=== PATIENT | female | born 1990 | race Caucasian/White ===

== ENCOUNTER → 2019-05-31 08:43 | Outpatient (BNVA) | payer SELFPAY | PROVIDERS: Family Provider Nurse Practitioner; PCP Nurse Practitioner; Visit Provider Nurse Practitioner Family | DX: S99.911A Unspecified injury of right ankle, initial encounter (principal); X58.XXXA Exposure to other specified factors, initial encounter | CPT/HCPCS: 73610 ==

== ENCOUNTER 2019-10-07 14:00 | Emergency (ER) | payer SELFPAY ==
--- NOTE | 2019-10-07 14:11 | ED_ITS ---
HPI - Extremity Injury (Lower) General: Chief Complaint: Extremity Problem,Nontraumatic Stated Complaint: r foot injury Time Seen by Provider: 10/07/19 14:11 Source: patient Mode of arrival: ambulatory Limitations: no limitations History of Present Illness: HPI Narrative: 29-year-old female comes in with pain and swelling to the right ankle. Patient was difficult to find out what it happened to her ankle. With further questioning it was found that patient had been walking in a ditch and slipped and fell yesterday. Since that time she has had some pain and discomfort to the ankle and noticed swelling this morning. Patient is weightbearing to the ankle. Patient does have some pain to it. complaint: ankle injury Review of Systems General: Reports: 10 or more systems reviewed and unremarkable except in HPI and below Musc: Reports: joint pain (right ankle pain) [facility] ED PFSH: Social History (Updated 05/30/19 @ 17:44 by Barbi Jones LPN) Smoking and tobacco status: current every day smoker Physical Exam Const: COMMON NORMALS: no acute distress and patient oriented x3 GENERAL APPEARANCE: cooperative HENMT: COMMON NORMALS: normocephalic and Normal external nose present HEAD & SCALP: normal to inspection and normocephalic NOSE: Normal external nose present MOUTH: Normal oral and palatal mucosa present THROAT: posterior oropharynx normal Eye: GENERAL EYE: appearance normal, both eyes and all related structures Neck/C-Spine: COMMON NORMALS: full ROM Chest: COMMONS NORMALS: normal inspection of the chest Resp: COMMON NORMALS: normal respiratory effort EFFORT & INSPECTION: Yes able to speak in complete sentences Cardio: COMMON NORMALS: regular rate and regular rhythm RATE: regular rate RHYTHM: regular rhythm GI: COMMON NORMALS: non-tender : COMMON NORMALS: Yes no CVA tenderness BLADDER/KIDNEY EXAM: Yes no CVA tenderness Back/Pelvis: COMMON NORMALS: no CVA tenderness and thoracic and lumbar spine normal to inspection Extremity: LEFT LOWER EXTREMITY: Yes ankle joint (Mild swelling and medial tenderness to the malleus.) Neuro: COMMON NORMALS: patient oriented x3 and moves all extremities Psych: COMMON NORMALS: mental status grossly normal and cooperative Skin: COMMON NORMALS: no rashes or lesions noted GENERAL SKIN EXAM: no rashes or lesions noted Course Vital Signs: Vital signs: Vital Signs Temperature 98.2 F 10/07/19 14:15 Pulse Rate 75 10/07/19 14:15 Respiratory Rate 16 10/07/19 14:15 Blood Pressure 103/74 10/07/19 14:15 Pulse Oximetry 100 10/07/19 14:15 MDM - Extremity Injury (Lower) MDM Narrative: Medical decision making narrative: Patient comes in today with complaints of injury to the right ankle. On exam we do note swelling to the lateral medial malleus of the ankle. Patient has good pulses. Prompt capillary refill. X-ray was negative for any fractures. Differential diagnosis includes fracture, sprain, contusion. Reviewed exam with patient recommendations for treatment for sprain. Patient reported understanding agreed to plan. Discharge Plan Discharge Patient Disposition: Home, Self-Care Clinical Impression: Ankle sprain Qualifiers: Encounter type: initial encounter Involved ligament of ankle: unspecified ligament Laterality: right Qualified Code(s): S93.401A - Sprain of unspecified ligament of right ankle, initial encounter Condition: Stable Prescriptions: New ibuprofen 800 mg tablet 800 mg PO Q8H PRN (Reason: pain) Qty: 30 RF: 0 No Action Excedrin Migraine 250-250-65 mg Tablet 1 - 2 tab PO PRN RF: 0 Discharge Orders: Discharge Order (Routine); Ordered 10/07/19 Ordered By: Asael Tan Referrals: Vikki Benjamin APN [Primary Care Provider] - Discharge Diet: Usual diet Discharge Activity: Increase activity as tolerated Patient Instructions: Ankle Sprain (ED) Activity Restrictions/Additional Instructions: Activity as tolerated. Gentle stretching and range of motion exercises. Drink plenty of water with medication. Use acetaminophen for further pain control. Use ice or heat to the area for further pain control. Follow-up with primary care for persistent symptoms. Return to the ER for new concerns. Coding Level of Care Code ED Ict Help Desk Officer for Annie Castro Exam Comprehensive
[2019-10-07 14:12] VITALS: BMI 24.3
[2019-10-07 14:15] VITALS: BP 103/74; PULSE 75; RESP 16; TEMP 36.8; O2SAT 100
--- NOTE | 2019-10-07 14:24 | XR_ITS ---
WS: [id number] XR ankle RT min 3V* [id number] REASON FOR EXAM: injury FINDINGS: The ankle mortise is normal. The tibia, fibula, talus show no abnormalities. The posterior shelf the tibia is normal. On previous exam of May 30, 2019 a small cortical fractu re was seen within the tibia along the distal diaphysis this is healed. XR/XR ankle RT min 3V* [id number] IMPRESSION: Negative right ankle There is soft tissue swelling over the medial and lateral malleolus.
[2019-10-07 15:25] VITALS: BP 105/72; PULSE 70; RESP 16; TEMP 36.8; O2SAT 96
--- NOTE | 2019-10-08 13:35 | PC.NURSE ---
COLLECTED SUPPLIES SUCH CATHERINE WRAP TO PLACE ON PT LEFT ANKLE. WHILE FINISHING PAPER WORK, PT ASKED IF SHE COULD GO OUTSIDE, ENCOURAGED HER TO STAY SO I COULD PLACE WRAP ON ANKLE. BUT SHE INSISTED ON GOING OUTSIDE. ASKED HER AGAIN TO WAIT FOR THE CATHERINE WRAP TO BE PLACED ON ANKLE. THEN SHE WALKED OUT.
== END 2019-10-07 15:28 | disposition home or self-care (01) ==
PROVIDERS: Emergency Provider Nurse Practitioner Family; Family Provider Nurse Practitioner; PCP Nurse Practitioner
DX: S93.401A Sprain of unspecified ligament of right ankle, initial encounter (principal); W01.0XXA Fall on same level from slipping, tripping and stumbling without subsequent striking against object, initial encounter; F17.210 Nicotine dependence, cigarettes, uncomplicated
CPT/HCPCS: 12345; 73610; 99282

== ENCOUNTER 2020-03-17 03:02 | Emergency (ER) | payer SELFPAY ==
[2020-03-17 03:04] VITALS: BP 113/72; PULSE 84; RESP 19; TEMP 36.7; O2SAT 91; BMI 23.2
--- NOTE | 2020-03-17 03:15 | W.ED.ABDPA2 ---
Documented by User: Mary Jane Busch 03/17/20 18:41 HPI - Abdominal Pain General: Chief Complaint: Abdominal Pain Stated Complaint: Pt states pain Time Seen by Provider: 03/17/20 03:06 Source: patient Mode of arrival: ambulatory Limitations: no limitations History of Present Illness: HPI narrative: Sindhu is a nice 29-year-old female who comes in complaining of midline lower abdominal pain that awoke her from sleep. Patient states that she is as she is had 2+ home test. She has irregular periods and is uncertain as to when her last normal menstrual period was. Patient states she is have 3 other healthy children. She currently denies any vaginal discharge or bleeding. She denies any urinary urgency, frequency or dysuria. Patient denies any flank or back pain. Is unaware of anything that makes her symptoms better or worse. She states this feels like uterine cramping. Associated Symptoms: Denies chills, coffee ground emesis, constipation, GI cramping, diarrhea, dysuria, fever(s), heartburn, hematochezia, hematuria, hematemesis, melena, nausea, syncope and vomiting Related Data: Date of Last Menstrual Period: 09/30/19 Review of Systems Const: Denies: fever(s), chills, body aches, fatigue, malaise or diaphoresis Eyes: Denies: change in vision, blurry vision, photophobia, eye discomfort, eye discharge, eye redness or yellow eyes ENMT: Denies: throat pain, odynophagia, hoarseness, swelling of lips/tongue, ear or mastoid pain, ear discharge, change in hearing or nasal discharge Card: Denies: chest pain, palpitations, irregular heart rhythm, edema, lightheadedness, syncope, pre-syncope, dyspnea on exertion or orthopnea Resp: Denies: dyspnea, productive cough, non-productive cough, wheezing, hemoptysis or chest congestion GI: Reports: abdominal pain; Denies: nausea, vomiting, hematemesis, coffee ground emesis, heartburn, diarrhea, constipation, GI cramping, hematochezia or melena : Denies: flank pain, dysuria, urinary frequency, urinary urgency or hematuria Musc: Denies: neck pain, back pain, extremity pain, extremity swelling, joint pain, joint swelling, joint redness, joint warmth or joint stiffness Skin/Breast: Denies: rash, pruritus, erythema, skin pain or skin tenderness Neuro: Denies: headache(s), numbness in extremities, weakness in extremities, sensory changes, lack of coordination, difficulty walking, dizziness, vertigo, confusion, Slurred speech present or seizure-like activity Guillermo/Lymph: Denies: easy bruising, easy bleeding, petechiae, purpura or enlarged lymph nodes All/Imm: Denies: urticaria, throat swelling, tongue swelling, facial swelling or acute wheezing PFSH ED PFSH: Medical History Asthma Panic disorder Social History Smoking and tobacco status: current every day smoker Female Reproductive History: Date of last menstrual period: 09/30/19 Physical Exam Const: COMMON NORMALS: no acute distress, patient oriented x3, no limitations and alert GENERAL APPEARANCE: cooperative HENMT: COMMON NORMALS: normocephalic, atraumatic, external ears normal, EAC's normal and Normal external nose present HEAD & SCALP: normal to inspection, normocephalic and atraumatic FACE & SINUS: normal facial exam and face symmetric NOSE: Normal external nose present and Normal nares present EXTERNAL EAR: Yes external ears normal EXTERNAL AUDITORY CANAL: EAC's normal MOUTH: Normal oral and palatal mucosa present, lip normal and tongue normal Eye: COMMON NORMALS: Equal, round and reactive pupils present and conjunctivae normal GENERAL EYE: appearance normal, both eyes and all related structures ALIGNMENT: Yes alignment normal PERIORBITAL: periorbital findings normal EYELID: eyelids normal CONJUNCTIVA: Yes conjunctivae normal SCLERA: sclerae normal PUPIL: Yes Equal, round and reactive pupils present Neck/C-Spine: COMMON NORMALS: full ROM, no lymphadenopathy, supple, no meningeal signs and no JVD GENERAL: Yes normal visual inspection and Yes trachea midline Chest: COMMONS NORMALS: normal inspection of the chest and normal palpation of entire chest wall Resp: COMMON NORMALS: normal respiratory effort, No retractions, No use of accessory muscles and clear to auscultation bilaterally EFFORT & INSPECTION: Yes able to speak in complete sentences and Yes symmetric chest movement AUSCULTATION: clear to auscultation bilaterally, no crackles, no rales, no rhonchi and no wheezes Cardio: COMMON NORMALS: no JVD, regular rhythm, S1 normal heart sound present and S2 normal heart sound present RATE: tachycardic RHYTHM: regular rhythm HEART SOUNDS: S1 normal heart sound present, S2 normal heart sound present, no click, no gallops, no murmurs and no rubs GI: COMMON NORMALS: Soft to palpation and No hepatosplenomegaly present PALPATION: Yes Soft to palpation, No Tenderness to palpation present (GI), No Guarding due to palpation present (GI), No Rigid due to palpation, Yes No hepatosplenomegaly present, No Hernia present, No Palpable mass present and No Pulsatile mass present : COMMON NORMALS: Yes no CVA tenderness BLADDER/KIDNEY EXAM: Yes no CVA tenderness EXTERNAL FEMALE EXAM: No Hernia present Back/Pelvis: COMMON NORMALS: no CVA tenderness, thoracic and lumbar spine normal to inspection, no thoracic nor lumbar tenderness and thoraco-lumbar ROM normal Extremity: COMMON NORMALS: normal to inspection, full ROM, capillary refill normal, no joint enlargement, no clubbing, cyanosis or edema and no calf tenderness Neuro: COMMON NORMALS: patient oriented x3, CN's II-XII intact bilaterally, moves all extremities, no focal motor deficits and no sensory deficits noted SENSORIUM/ORIENTATION: Yes alert MENINGEAL SIGNS: Yes no meningeal signs SPEECH: speech normal Psych: COMMON NORMALS: mental status grossly normal, Normal thought process present, cooperative, normal affect, speech normal and activity/motor behavior normal SPEECH: Yes normal speech THOUGHT PROCESS: Normal thought process present Skin: COMMON NORMALS: no rashes or lesions noted, turgor normal, no jaundice, no petechiae and no mottling GENERAL SKIN EXAM: no rashes or lesions noted and turgor normal Course Vital Signs: Vital signs: Vital Signs Temperature 98.1 F 03/17/20 03:04 Pulse Rate 97 03/17/20 08:00 Respiratory Rate 17 03/17/20 08:00 Blood Pressure 120/73 03/17/20 08:00 Pulse Oximetry 98 03/17/20 08:00 MDM - Abdominal Pain MDM Narrative: Medical decision making narrative: 0600 - Case turned over to Dr. David at change of shift. Lab Data: Labs: Lab Results 03/17/20 03/17/20 03/17/20 Range/Units 03:41 03:41 03:41 WBC 11.0 H (4.0-10.0) 10^3/ uL RBC 4.91 (4.1-5.3) 10^6/u L Hgb 10.0 L (11.5-15.3) g/dL Hct 34.3 L (37.0-47.0) % MCV 69.9 L (81-99) fL MCH 20.4 L (28.0-34.0) pg MCHC 29.2 L (30.0-36.0) g/dL RDW 15.5 H (12.1-15.1) % Plt Count 293 (130-400) 10^3/c mm MPV 10.5 H (7.4-10.4) fL Neut % (Auto) 73.6 % Lymph % (Auto) 19.8 % [place] % (Auto) 5.4 % Eos % (Auto) 0.5 % Baso % (Auto) 0.4 % Neut # (Auto) 8.12 H (1.8-7.7) 10^3/u L Lymph # (Auto) 2.2 (0.8-4.8) 10^3/u L [place] # (Auto) 0.6 (0.2-0.9) 10^3/u L Eos # (Auto) 0.1 (0.0-0.8) 10^3/u L Baso # (Auto) 0.0 (0.0-0.1) 10^3/u L Nucleated RBC % (a uto) 0 % Nucleated RBCs # 0.0 /100WBC Sodium 135 L (136-145) mmol/L Potassium 3.3 L (3.5-5.1) mmol/L Chloride 99 (98-107) mmol/L Carbon Dioxide 26 (22-29) mmol/L Anion Gap 13.3 (5-19) BUN 10 (6-20) mg/dL Creatinine 0.5 (0.5-0.9) mg/dL GFR Calculation 145.9 H (90-130) mL/min Glucose 121 H (65-115) mg/dL Calculated Osmolal ity 280 L (285-295) mOsm/k g Calcium 9.5 (8.5-10.5) mg/dL Total Bilirubin 0.5 (0.15-1.2) mg/dL AST 24 (0-32) U/L ALT 16 (0-33) U/L Alkaline Phosphata se 76 (35-105) IU/L Total Protein 7.4 (6.6-8.7) g/dL Albumin 4.5 (3.5-5.2) g/dL Globulin 2.9 (1.3-4.6) g/dL HCG, Qual (Negative) Ser , Jamey i-Qnt 2.17 mIU/mL Urine Color (Yellow) Urine Appearance (CLEAR) Urine pH (5-7) Ur Specific Gravit y (1.005-1.030) Urine Protein (Negative) Urine Glucose (UA) (Normal) Urine Ketones (Negative) Urine Blood (Negative) Urine Nitrate (Negative) Urine Bilirubin (Negative) Urine Urobilinogen (Negative) mg/dL Ur Leukocyte Anali ase (Negative) Urine RBC (0-2) /hpf Urine WBC (0-5) /hpf Ur Squamous Epith Cells (0-5) /hpf Amorphous Sediment Urine Bacteria (NONE) /hpf Urine Mucus /hpf Blood Type O Positive Rho(D) Type Positive 03/17/20 03/17/20 Range/Units 03:41 06:01 WBC (4.0-10.0) 10^3/ uL RBC (4.1-5.3) 10^6/u L Hgb (11.5-15.3) g/dL Hct (37.0-47.0) % MCV (81-99) fL MCH (28.0-34.0) pg MCHC (30.0-36.0) g/dL RDW (12.1-15.1) % Plt Count (130-400) 10^3/c mm MPV (7.4-10.4) fL Neut % (Auto) % Lymph % (Auto) % [place] % (Auto) % Eos % (Auto) % Baso % (Auto) % Neut # (Auto) (1.8-7.7) 10^3/u L Lymph # (Auto) (0.8-4.8) 10^3/u L [place] # (Auto) (0.2-0.9) 10^3/u L Eos # (Auto) (0.0-0.8) 10^3/u L Baso # (Auto) (0.0-0.1) 10^3/u L Nucleated RBC % (a uto) % Nucleated RBCs # /100WBC Sodium (136-145) mmol/L Potassium (3.5-5.1) mmol/L Chloride (98-107) mmol/L Carbon Dioxide (22-29) mmol/L Anion Gap (5-19) BUN (6-20) mg/dL Creatinine (0.5-0.9) mg/dL GFR Calculation (90-130) mL/min Glucose (65-115) mg/dL Calculated Osmolal ity (285-295) mOsm/k g Calcium (8.5-10.5) mg/dL Total Bilirubin (0.15-1.2) mg/dL AST (0-32) U/L ALT (0-33) U/L Alkaline Phosphata se (35-105) IU/L Total Protein (6.6-8.7) g/dL Albumin (3.5-5.2) g/dL Globulin (1.3-4.6) g/dL HCG, Qual Negative (Negative) Ser , Jamey i-Qnt mIU/mL Urine Color Yellow (Yellow) Urine Appearance Clear (CLEAR) Urine pH 5.0 (5-7) Ur Specific Gravit y 1.025 (1.005-1.030) Urine Protein Neg (Negative) Urine Glucose (UA) Norm (Normal) Urine Ketones 1+ H (Negative) Urine Blood Neg (Negative) Urine Nitrate Negative (Negative) Urine Bilirubin Neg (Negative) Urine Urobilinogen Norm (Negative) mg/dL Ur Leukocyte Anali ase Negative (Negative) Urine RBC None (0-2) /hpf Urine WBC 0-4 H (0-5) /hpf Ur Squamous Epith Cells 15-25 H (0-5) /hpf Amorphous Sediment Not Reportable Urine Bacteria 1+ H (NONE) /hpf Urine Mucus 3+ /hpf Blood Type Rho(D) Type Discharge Plan Discharge Patient Disposition: Home Clinical Impression: Acute PID (pelvic inflammatory disease), Hemorrhagic cyst of right ovary Condition: Stable Prescriptions: New doxycycline hyclate 100 mg capsule 100 mg PO BID 14 Days Qty: 28 RF: 0 hydrocodone-acetaminophen 5-325 mg tablet 1 tab PO Q6H PRN (Reason: pain) Qty: 20 RF: 0 No Action Excedrin Migraine 250-250-65 mg Tablet 1 - 2 tab PO PRN RF: 0 ibuprofen 800 mg tablet 800 mg PO Q8H PRN (Reason: pain) Qty: 30 RF: 0 Discharge Orders: Discharge Order (Routine); Ordered 03/17/20 Ordered By: Fermín David Referrals: Vikki Benjamin COMPUTERIZED TABLE CUTTER [Primary Care Provider] - Discharge Diet: Usual diet Discharge Activity: Increase activity as tolerated Activity Restrictions/Additional Instructions: Case management will call to set up a follow-up with ARTILL[facility] OFFICER on your ultrasound. There was some thickening of the endometrium and the ovarian cyst that need follow-up. If you have worsening or change symptoms recheck in the emergency room. Sign Out Sign Out Data: Patient Sign Out occurred on 03/17/20 at 06:09. Patient's care was discussed, and care was transferred from to Fermín David DO. Coding Level of Care Code ED Filament Tester for Chg Fwd Exam Comprehensive Documented by User: Fermín David DO 03/21/20 12:40 HPI - Abdominal Pain General: Chief Complaint: Abdominal Pain Stated Complaint: Pt states pain Time Seen by Provider: 03/17/20 03:06 [facility] ED PFSH: Medical History Asthma Panic disorder Social History Smoking and tobacco status: current every day smoker Course Vital Signs: Vital signs: Vital Signs Temperature 98.1 F 03/17/20 03:04 Pulse Rate 97 03/17/20 08:00 Respiratory Rate 17 03/17/20 08:00 Blood Pressure 120/73 03/17/20 08:00 Pulse Oximetry 98 03/17/20 08:00 MDM - Abdominal Pain MDM Narrative: Medical decision making narrative: Treat for PID patient given Zithromax 1 g p.o. to 50 IM ceftriaxone and started on doxycycline for 14 days pending results. Discussed with the patient follow-up with her primary care doctor. Lab Data: Labs: Lab Results 03/17/20 03/17/20 03/17/20 Range/Units 03:41 03:41 03:41 WBC 11.0 H (4.0-10.0) 10^3/ uL RBC 4.91 (4.1-5.3) 10^6/u L Hgb 10.0 L (11.5-15.3) g/dL Hct 34.3 L (37.0-47.0) % MCV 69.9 L (81-99) fL MCH 20.4 L (28.0-34.0) pg MCHC 29.2 L (30.0-36.0) g/dL RDW 15.5 H (12.1-15.1) % Plt Count 293 (130-400) 10^3/c mm MPV 10.5 H (7.4-10.4) fL Neut % (Auto) 73.6 % Lymph % (Auto) 19.8 % [place] % (Auto) 5.4 % Eos % (Auto) 0.5 % Baso % (Auto) 0.4 % Neut # (Auto) 8.12 H (1.8-7.7) 10^3/u L Lymph # (Auto) 2.2 (0.8-4.8) 10^3/u L [place] # (Auto) 0.6 (0.2-0.9) 10^3/u L Eos # (Auto) 0.1 (0.0-0.8) 10^3/u L Baso # (Auto) 0.0 (0.0-0.1) 10^3/u L Nucleated RBC % (a uto) 0 % Nucleated RBCs # 0.0 /100WBC Sodium 135 L (136-145) mmol/L Potassium 3.3 L (3.5-5.1) mmol/L Chloride 99 (98-107) mmol/L Carbon Dioxide 26 (22-29) mmol/L Anion Gap 13.3 (5-19) BUN 10 (6-20) mg/dL Creatinine 0.5 (0.5-0.9) mg/dL GFR Calculation 145.9 H (90-130) mL/min Glucose 121 H (65-115) mg/dL Calculated Osmolal ity 280 L (285-295) mOsm/k g Calcium 9.5 (8.5-10.5) mg/dL Total Bilirubin 0.5 (0.15-1.2) mg/dL AST 24 (0-32) U/L ALT 16 (0-33) U/L Alkaline Phosphata se 76 (35-105) IU/L Total Protein 7.4 (6.6-8.7) g/dL Albumin 4.5 (3.5-5.2) g/dL Globulin 2.9 (1.3-4.6) g/dL HCG, Qual (Negative) Ser , Jamey i-Qnt 2.17 mIU/mL Urine Color (Yellow) Urine Appearance (CLEAR) Urine pH (5-7) Ur Specific Gravit y (1.005-1.030) Urine Protein (Negative) Urine Glucose (UA) (Normal) Urine Ketones (Negative) Urine Blood (Negative) Urine Nitrate (Negative) Urine Bilirubin (Negative) Urine Urobilinogen (Negative) mg/dL Ur Leukocyte Anali ase (Negative) Urine RBC (0-2) /hpf Urine WBC (0-5) /hpf Ur Squamous Epith Cells (0-5) /hpf Amorphous Sediment Urine Bacteria (NONE) /hpf Urine Mucus /hpf Blood Type O Positive Rho(D) Type Positive 03/17/20 03/17/20 Range/Units 03:41 06:01 WBC (4.0-10.0) 10^3/ uL RBC (4.1-5.3) 10^6/u L Hgb (11.5-15.3) g/dL Hct (37.0-47.0) % MCV (81-99) fL MCH (28.0-34.0) pg MCHC (30.0-36.0) g/dL RDW (12.1-15.1) % Plt Count (130-400) 10^3/c mm MPV (7.4-10.4) fL Neut % (Auto) % Lymph % (Auto) % [place] % (Auto) % Eos % (Auto) % Baso % (Auto) % Neut # (Auto) (1.8-7.7) 10^3/u L Lymph # (Auto) (0.8-4.8) 10^3/u L [place] # (Auto) (0.2-0.9) 10^3/u L Eos # (Auto) (0.0-0.8) 10^3/u L Baso # (Auto) (0.0-0.1) 10^3/u L Nucleated RBC % (a uto) % Nucleated RBCs # /100WBC Sodium (136-145) mmol/L Potassium (3.5-5.1) mmol/L Chloride (98-107) mmol/L Carbon Dioxide (22-29) mmol/L Anion Gap (5-19) BUN (6-20) mg/dL Creatinine (0.5-0.9) mg/dL GFR Calculation (90-130) mL/min Glucose (65-115) mg/dL Calculated Osmolal ity (285-295) mOsm/k g Calcium (8.5-10.5) mg/dL Total Bilirubin (0.15-1.2) mg/dL AST (0-32) U/L ALT (0-33) U/L Alkaline Phosphata se (35-105) IU/L Total Protein (6.6-8.7) g/dL Albumin (3.5-5.2) g/dL Globulin (1.3-4.6) g/dL HCG, Qual Negative (Negative) Ser , Jamey i-Qnt mIU/mL Urine Color Yellow (Yellow) Urine Appearance Clear (CLEAR) Urine pH 5.0 (5-7) Ur Specific Gravit y 1.025 (1.005-1.030) Urine Protein Neg (Negative) Urine Glucose (UA) Norm (Normal) Urine Ketones 1+ H (Negative) Urine Blood Neg (Negative) Urine Nitrate Negative (Negative) Urine Bilirubin Neg (Negative) Urine Urobilinogen Norm (Negative) mg/dL Ur Leukocyte Anali ase Negative (Negative) Urine RBC None (0-2) /hpf Urine WBC 0-4 H (0-5) /hpf Ur Squamous Epith Cells 15-25 H (0-5) /hpf Amorphous Sediment Not Reportable Urine Bacteria 1+ H (NONE) /hpf Urine Mucus 3+ /hpf Blood Type Rho(D) Type Discharge Plan Discharge Patient Disposition: Home Clinical Impression: Acute PID (pelvic inflammatory disease), Hemorrhagic cyst of right ovary Condition: Stable Prescriptions: New doxycycline hyclate 100 mg capsule 100 mg PO BID 14 Days Qty: 28 RF: 0 hydrocodone-acetaminophen 5-325 mg tablet 1 tab PO Q6H PRN (Reason: pain) Qty: 20 RF: 0 No Action Excedrin Migraine 250-250-65 mg Tablet 1 - 2 tab PO PRN RF: 0 ibuprofen 800 mg tablet 800 mg PO Q8H PRN (Reason: pain) Qty: 30 RF: 0 Discharge Orders: Discharge Order (Routine); Ordered 03/17/20 Ordered By: Fermín David Referrals: Vikki Benjamin APN [Primary Care Provider] - Discharge Diet: Usual diet Discharge Activity: Increase activity as tolerated Activity Restrictions/Additional Instructions: Case management will call to set up a follow-up with ARTILLERY OFFICER on your ultrasound. There was some thickening of the endometrium and the ovarian cyst that need follow-up. If you have worsening or change symptoms recheck in the emergency room. Sign Out Sign Out Data: Patient Sign Out occurred on 03/17/20 at 06:09. Patient's care was discussed, and care was transferred from to Fermín David DO. Coding Level of Care Code ED Filament Tester for Annie Fwd Exam Comprehensive
[2020-03-17 03:42] VITALS: RESP 17
[2020-03-17] MEDS: metoclopramide 5 mg/mL SDV 2 mL 10 MG IV (03:42)
[2020-03-17] MEDS: sodium chloride 0.9% 1,000 ML 999 ML IV (03:42)
[2020-03-17] MEDS: morphine 4 mg/mL SDV 1 mL IVP ×2 (03:42→07:53)
[2020-03-17 03:50] LABS: Basophils % 0.4 %; Eosinophils # 0.1 10^3/uL (0.0-0.8); Eosinophils % 0.5 %; Hematocrit 34.3 % (37.0-47.0); Lymphocytes # 2.2 10^3/uL (0.8-4.8); Lymphocytes % 19.8 %; Mean Corpuscular HGB Conc 29.2 g/dL (30.0-36.0); Mean Corpuscular Hemoglobin 20.4 pg (28.0-34.0); Mean Corpuscular Volume 69.9 fL (81-99); Mean Platelet Volume 10.5 fL (7.4-10.4); Monocytes # 0.6 10^3/uL (0.2-0.9); Monocytes % 5.4 %; Neutrophils # 8.12 10^3/uL (1.8-7.7); Neutrophils % 73.6 %; Nucleated Red Blood Cells % 0 %; Platelet Count 293 10^3/cmm (130-400); Red Blood Count 4.91 10^6/uL (4.1-5.3); Red Cell Distribution Width 15.5 % (12.1-15.1)
[2020-03-17 04:12] LABS: HCG Quantitative 2.17 mIU/mL; HCG, Serum Qual Negative (Negative)
[2020-03-17 04:28] LABS: Alanine Aminotransferase 16 U/L (0-33); Albumin Level 4.5 g/dL (3.5-5.2); Alkaline Phosphatase 76 IU/L (35-105); Anion Gap 13.3 (5-19); Aspartate Amino Transferase 24 U/L (0-32); Blood Urea Nitrogen 10 mg/dL (6-20); Calcium 9.5 mg/dL (8.5-10.5); Carbon Dioxide 26 mmol/L (22-29); Chloride 99 mmol/L (98-107); Globulin 2.9 g/dL (1.3-4.6); Glomerular Filtration Rate 145.9 mL/min (90-130); Glucose 121 mg/dL (65-115); Osmolality Calculated 280 mOsm/kg (285-295); Potassium 3.3 mmol/L (3.5-5.1); Sodium 135 mmol/L (136-145); Total Bilirubin 0.5 mg/dL (0.15-1.2); Total Protein 7.4 g/dL (6.6-8.7)
--- NOTE | 2020-03-17 04:33 | USR_ITS ---
PROCEDURE INFORMATION: Exam: US Nonobstetric Pelvis; Complete Exam date and time: 03/17/2020 5:58 AM Age: 29 years old Clinical indication: Pelvic pain; Prior surgery; Surgery date: 6+ months; Surgery type: Tubes tied. ; Patient HX: PT had dx of hpv with CA changes but did not follow up on dx with caregiver. PT had 3+ home pg tests. TECHNIQUE: Imaging protocol: Transabdominal pelvic nonobstetric ultrasound. Complete exam. Real time ultrasound with image documentation. COMPARISON: CR Pelvis AP 1 or 2 views* [id number] 09/10/2018 3:12 AM FINDINGS: Uterus/cervix: Abnormally thickened 20 mm endometrium in the uterine fundus. Neoplasm versus endometrial hyperplasia. 1.4 cm intramural fibroid in the posterior uterus which is partially submucosal. Right adnexa: Enlarged 4.0 x 3.2 x 4.0 cm right ovary with estimated volume 26 cc. 1.5 cm simple right ovarian cyst with multiple smaller cyst. Normal perfusion to the right ovary. Left adnexa: 3.4 x 1.6 x 3.2 cm left ovary with estimated volume 9.3 cc. Normal perfusion to the left ovary. Intraperitoneal space: Free fluid in the posterior cul-de-sac with possible debris. Free fluid and debris surrounding the right ovary with the patient in pain suggesting possible ruptured hemorrhagic cyst versus pelvic inflammatory disease versus other lesion. Urinary bladder: Normal. US/US pelvic with transvaginal IMPRESSION: 1. Abnormally thickened 20 mm endometrium in the uterine fundus. Neoplasm versus endometrial hyperplasia. 2. 1.4 cm intramural fibroid in the posterior uterus which is partially submucosal. 3. Enlarged 4.0 x 3.2 x 4.0 cm right ovary with estimated volume 26 cc. 4. Free fluid in the posterior cul-de-sac with possible debris. 5. Free fluid and debris surrounding the right ovary with the patient in pain suggesting possible ruptured hemorrhagic cyst versus pelvic inflammatory disease versus other lesion. Six. Normal ovarian perfusion with no obvious torsion. Impression.
[2020-03-17 06:07] VITALS: BP 117/70; PULSE 80; RESP 17; O2SAT 96
[2020-03-17 06:24] LABS: Specific Gravity, Urine 1.025 (1.005-1.030); Urine Appearance Clear (CLEAR); Urine Color Yellow (Yellow)
[2020-03-17 06:25] LABS: Bilirubin Urine Neg (Negative); Blood Urine Neg (Negative); Glucose Urine UA Norm (Normal); Ketones Urine 1+ (Negative); Leukocyte Esterase Urine Negative (Negative); Nitrate Urine Negative (Negative); Protein Urine Neg (Negative); Urobilinogen Urine Norm (Negative)
[2020-03-17 06:29] LABS: Squamous Epithelial Cell Urine 15-25 /hpf (0-5); WBC Urine 0-4 /hpf (0-5)
[2020-03-17 06:30] LABS: Add Urine Culture? No; Bacteria Urine 1+ /hpf; Mucus Urine 3+ /hpf
[2020-03-17] MEDS: azithromycin 250 mg Tablet 1000 MG PO (06:59)
[2020-03-17 07:02] VITALS: BP 115/73; PULSE 101; O2SAT 99
[2020-03-17] MEDS: cefTRIAXone 250 mg SDV IM (07:32)
[2020-03-17] MEDS: lidocaine 1% INJ 20 mL INJECTION (07:33)
[2020-03-17 07:53] VITALS: RESP 18; O2SAT 98
[2020-03-17 08:00] VITALS: BP 120/73; PULSE 97; RESP 17; O2SAT 98
--- NOTE | 2020-03-17 08:43 | DCPLANNER ---
manager of development was asked to schedule a follow up appointment for patient with [facility]. manager of development called the [facility], spoke with Maximilian, gave clinic patients information. manager of development was told that patients information would be printed and reviewed. Clinic will call patient with appointment information.
--- NOTE | 2020-03-22 07:44 | DCPLANNER ---
Patient has a follow up appointment scheduled for Wednesday, April 08, 2020 at 10:[address] Chamberlain. Clinic will call patient with appointment information.
--- NOTE | 2020-04-15 15:13 | DCPLANNER ---
Patient had a follow up appointment scheduled for 04.08.20 with [facility] - patient did not attend appointment.
== END 2020-03-17 07:51 | disposition home or self-care (01) ==
PROVIDERS: Emergency Medicine; Emergency Provider Family Medicine; Family Provider Nurse Practitioner; PCP Nurse Practitioner
DX: N73.0 Acute parametritis and pelvic cellulitis (principal); N83.201 Unspecified ovarian cyst, right side; F17.210 Nicotine dependence, cigarettes, uncomplicated
CPT/HCPCS: 12345; 76830; 76856; 80053; 81001; 84702; 84703; 85025; 86900; 87210; 87491; 87591; 96361; 96372; 96374; 96375; 96376; 99283; 99284; E0352; J0696; J2270; J2765; J7030; Q0144

== ENCOUNTER → 2020-05-24 13:59 | Outpatient (BNVA) | payer SELFPAY | PROVIDERS: Family Provider Nurse Practitioner; PCP Nurse Practitioner; Visit Provider Obstetrics & Gynecology | DX: D25.1 Intramural leiomyoma of uterus (principal); N83.292 Other ovarian cyst, left side; R10.2 Pelvic and perineal pain | CPT/HCPCS: 76830 ==

== ENCOUNTER → 2022-10-15 15:00 | Outpatient (BNVA) | payer SELFPAY | PROVIDERS: Family Provider Nurse Practitioner; PCP Nurse Practitioner; Visit Provider Obstetrics & Gynecology | DX: Z12.4 Encounter for screening for malignant neoplasm of cervix (principal) | CPT/HCPCS: 87624 ==

== ENCOUNTER 2022-11-20 12:41 | Emergency (ER) | payer SELFPAY ==
[2022-11-20 12:45] VITALS: BP 115/73; PULSE 65; RESP 16; TEMP 36.6; O2SAT 97; BMI 23.4
--- NOTE | 2022-11-20 12:55 | ED_ITS ---
HPI - Extremity Problem General: Chief complaint: Extremity Injury, Lower Stated complaint: LT leg swollen from knee down Time Seen by Provider: 11/20/22 12:54 History of Present Illness: Ms. Ayala is a 32-year-old lady without significant past medical history presenting to the emergency department for lower extremity swelling. She noted onset of symptoms about 3 weeks ago. She thinks she may have been bit on the top of her foot by a snake. She did not necessarily notice anything right away but subsequently developed aching in her ankle. Since that time she has had progressive onset of swelling associated with mild to moderate pain. Pain is improved with ambulation. She has not tried over the counter medications. Denies signs of systemic illness. No other specific changes in health, exacerbating, or alleviating factors identified. Onset (ago): week(s) Pain Consistency: constant Location: left and lower extremity Quality: aching Radiation: proximal Exacerbating factors: palpation Associated symptoms: Reports arthralgias Review of Systems General: Reports: 10 or more systems reviewed and unremarkable except in HPI and below PFSH ED PFSH: Medical History Asthma Panic disorder Surgical History H/O tubal ligation 10/09/2015- tubal ligation. Performed by Dr. Dustin Juarez at [facility] in [place], [place]. S/P tonsillectomy and adenoidectomy Family History Grandmother Breast cancer maternal, age onset unknown Diabetes maternal Colon cancer maternal great great Family/Other Thyroid condition maternal aunt Father Heart disease Denies family history of Ovarian cancer Clotting disorder Hyperlipidemia Anesthesia complication Bleeding disorder Hypertension Uterine cancer Stroke Physical Exam Const: COMMON NORMALS: alert GENERAL APPEARANCE: cooperative and well developed HENMT: COMMON NORMALS: normocephalic and atraumatic HEAD & SCALP: normocephalic and atraumatic Eye: COMMON NORMALS: conjunctivae normal CONJUNCTIVA: Yes conjunctivae normal SCLERA: sclerae normal Neck/C-Spine: COMMON NORMALS: supple GENERAL: Yes trachea midline Resp: COMMON NORMALS: clear to auscultation bilaterally EFFORT & INSPECTION: Yes able to speak in complete sentences AUSCULTATION: clear to auscultation bilaterally Cardio: COMMON NORMALS: regular rate and regular rhythm RATE: regular rate RHYTHM: regular rhythm Extremity: NARRATIVE EXTREMITY EXAM: Left lower extremity edema from the distal thigh down. Appears to be progressive and circumferential with firmness and minimal warmth. No clear overlying cellulitis. CMS distally intact. GENERAL: Yes normal exam except as noted and No edema Neuro: COMMON NORMALS: moves all extremities SENSORIUM/ORIENTATION: Yes alert and No Orientation impaired Psych: COMMON NORMALS: mental status grossly normal and Normal thought process present THOUGHT PROCESS: Normal thought process present Course Vital Signs: Vital signs: Vital Signs Temperature 97.8 F 11/20/22 12:45 Pulse Rate 65 11/20/22 12:45 Respiratory Rate 16 11/20/22 12:45 Blood Pressure 115/73 11/20/22 12:45 Pulse Oximetry 97 11/20/22 12:45 Oxygen Delivery Me thod Room Air 11/20/22 12:45 MDM - Extremity (Nontraumatic) Medical Decision Making 32-year-old lady presenting with left lower extremity swelling with reported remote history of possible snake bite. Extremity is quite edematous from just proximal to the knee down. CMS intact. No increased pain with passive movements. Generalized firmness to palpation however no specific compartment firmness identified. Doppler venous study negative for DVT. Normal KENIA. X-rays are negative for fracture or foreign body. I ordered labs which the patient adamantly repeatedly declined. I explained to the patient reason for obtaining labs including help differentiating cause of symptoms as well as evaluating for complications relating to both possible envenomation and degree of swelling. I explained risks of not obtaining labs including possibility of permanent pain/debility or loss of extremity or worse. I discussed with poison control. Certainly swelling can persist and this may be sequelae of envenomation however there is no indication for antivenom. Tdap ordered The patient is oriented to person, place, and time, has the capacity to make decisions regarding the medical care offered. The patient speaks coherently and exhibits no evidence of having an altered level of consciousness or alcohol or drug intoxication to a point that would impair judgment. Patient left AGAINST MEDICAL ADVICE. Discharge instructions were provided and the patient understands that she may return to the emergency department for any reason at any time. Medical Records I reviewed the patient's medical records. Lab Data I reviewed the patient's lab results. Radiology Impressions Foot X-Ray 11/20/22 12:59 IMPRESSION: No acute findings. Knee X-Ray 11/20/22 12:59 IMPRESSION: No acute findings. Tibia/Fibula X-Ray 11/20/22 12:59 IMPRESSION: No acute findings. Discharge Plan Discharge Patient Disposition: Left Against Medical Advice Clinical Impression: Pain and swelling of left lower extremity, Bite of left lower leg Condition: Stable Prescriptions: New cephalexin 500 mg capsule 500 mg PO Q6H 7 Days Qty: 28 0RF No Action Excedrin Migraine 250-250-65 mg Tablet 1 - 2 tab PO Q6H PRN (Reason: Pain) Iron (ferrous sulfate) 325 mg (65 mg iron) Tablet 325 mg PO DAILY albuterol sulfate 90 mcg/actuation Hfa Aerosol Inhaler 2 puff INHALATION QID PRN (Reason: Shortness Of Breath Or Wheezing) Discharge Orders: Discharge ED (Routine); Ordered 11/20/22 Ordered By: Dank Van Referrals: Vikki Benjamin APN [Primary Care Provider] - Discharge Diet: Usual diet Discharge Activity: Increase activity as tolerated Patient Instructions: Snake Bite (ED), Leg Edema (ED) Activity Restrictions/Additional Instructions: Thank you for visiting the emergency department. You were seen and evaluated for leg pain and swelling with possible history of snakebite. I am unsure of the exact cause of your symptoms. After discussion with poison control this may be related to sequelae of snakebite. No antivenom is indicated. Elevation and gentle compression of may be help with symptoms. You may use [id number] medications such as acetaminophen and ibuprofen for pain however please do not exceed the daily recommended dosage as listed on the packaging and please keep in mind that many namebrand medications contain the same active ingredients. Please avoid these medications if previously instructed to do so by another physician due to other underlying medical condition. Without performing additional testing including blood work I am unable to evaluate and rule out life and limb threatening conditions. Risks include but are not limited to loss of limb, permanent pain or debility, requirement of invasive procedures, . You are choosing to leave AGAINST MEDICAL ADVICE. You may return to our or any emergency department at any time for any reason. Please follow-up with your primary care provider Return for anything that you are concerned about and feel needs emergency department evaluation. Stand Alone Forms: Against Medical Advice Coding Level of Care Code ED Data Analytics Architect for Annie Castro
--- NOTE | 2022-11-20 12:59 | XRR_ITS ---
PROCEDURE INFORMATION: Exam: XR Left Foot Exam date and time: 11/20/2022 1:12 PM Age: 32 years old Clinical indication: Swelling or effusion of joint; Foot; Patient HX: Swollen left knee and down leg; Additional info: Swelling, pain, possible snake bite TECHNIQUE: Imaging protocol: Radiologic exam of the left foot. Views: 3 or more views. COMPARISON: No relevant prior studies available. FINDINGS: Bones/joints: Normal. Soft tissues: Normal. XR/XR foot LT min 3V* [id number] IMPRESSION: No acute findings.
--- NOTE | 2022-11-20 12:59 | USCV_ITS ---
JamieDustinna Age: 32 Gender: F : 1990 Exam Date: 11/20/2022 13:27 Ordering Phys: Dank Van MD Technologist: Mustapha Martin [place] [facility] [place]ication: lt leg pain and swelling PROCEDURES: Venous duplex imaging was performed in only the left lower extremity. The following venous structures were evaluated: common femoral vein, profunda vein, proximal portion of the greater saphenous vein, superficial femoral vein, and the popliteal vein. In addition, the posterior tibial and peroneal trunk were evaluated. FINDINGS: Normal 2-D Doppler and augmentation and compressibility throughout the lower extremity venous structures. Additional imaging through the proximal calf veins also reveals no thrombus. Limited evaluation of the greater saphenous vein is patent with no thrombus. CONCLUSIONS No evidence of left lower extremity DVT. Quan Mckeon MD (Electronically Signed) Final Date: 20 November 2022 16:40 S
--- NOTE | 2022-11-20 12:59 | XRR_ITS ---
PROCEDURE INFORMATION: Exam: XR Left Knee Exam date and time: 11/20/2022 1:15 PM Age: 32 years old Clinical indication: Swelling, leg or foot; Additional info: Swelling, pain, possible snake bite TECHNIQUE: Imaging protocol: Radiologic exam of the left knee. Views: 3 views. COMPARISON: CR XR tibia fibula LT 2V [id number] 11/20/2022 1:15 PM FINDINGS: Bones/joints: Normal. Soft tissues: Normal. XR/XR knee LT 3V* [id number] IMPRESSION: No acute findings.
--- NOTE | 2022-11-20 12:59 | XRR_ITS ---
PROCEDURE INFORMATION: Exam: XR Left Tibia and Fibula Exam date and time: 11/20/2022 1:15 PM Age: 32 years old Clinical indication: Swelling, leg or foot; Additional info: Swelling, pain, possible snake bite TECHNIQUE: Imaging protocol: Radiologic exam of the left tibia and fibula. Views: 2 views. COMPARISON: CR XR foot LT min 3V* [id number] 11/20/2022 1:12 PM FINDINGS: Bones/joints: Normal. Soft tissues: Normal. XR/XR tibia fibula LT 2V [id number] IMPRESSION: No acute findings.
--- NOTE | 2022-11-20 13:07 | USCV_ITS ---
Sindhu Ayala Age: 32 Gender: F : 1990 Exam Date: 11/20/2022 13:33 Ordering Phys: Dank Vna MD Technologist: Mustapha Martin Exam Location: [facility] [place] Indication: swollen ankle RIGHT LEFT Brachial 160.00 mmHg Brachial 160.00 mmHg Pressure (mmHg) Waveform Pressure (mmHg) Waveform 160.00 NURSING RESIDENT 160.00 160.00 DPA 160.00 1.00 Ankle/Brachial Index 1.00 FINDINGS Resting KENIA 1.0 bilaterally CONCLUSIONS Normal resting ABIs bilaterally, suggesting no significant arterial obstruction Dr Liseth Mesa MD [facility] (Electronically Signed) Final Date: 20 November 2022 20:28 S
--- NOTE | 2022-11-20 13:12 | PC.NURSE ---
I went in to start patient's IV and draw blood, the patient stated that she is refusing to get an IV and does not want her blood drawn that it is not necessary. I also asked the patient if she still wanted the xrays and ultrasound that the physician had ordered and she stated she did not think they were necessary either. I then informed my preceptor nurse Marcial and Dr. Van of what the patient stated .
--- NOTE | 2022-11-20 13:19 | PC.NURSE ---
[facility] went into the patient's room to straight stick the patient to obtain blood. The patient has again refused to let the apple picking supervisor stick the patient to obtain blood.
--- NOTE | 2022-11-20 15:02 | PC.NURSE ---
Patient refused Tdap vaccination when I went in to give it to her and discharge her.
== END 2022-11-20 15:08 | disposition left against medical advice (07) ==
PROVIDERS: Emergency Provider Emergency Medicine; PCP Nurse Practitioner
DX: S91.352A Open bite, left foot, initial encounter (principal); W59.11XA Bitten by nonvenomous snake, initial encounter; M79.605 Pain in left leg; M79.89 Other specified soft tissue disorders; Z53.21 Procedure and treatment not carried out due to patient leaving prior to being seen by health care provider
CPT/HCPCS: 73562; 73590; 73630; 93922; 93971; 99284